=== PATIENT | male | born 1945 | race Caucasian/White ===

== ENCOUNTER 2019-05-11 15:45 | Emergency (ER) | payer MEDICARE | END 2019-05-11 16:52 | disposition home or self-care (01) | LOC: ERS 15:45 | DX: G51.0 Bell's palsy (principal); E11.65 Type 2 diabetes mellitus with hyperglycemia; I10 Essential (primary) hypertension; F17.210 Nicotine dependence, cigarettes, uncomplicated | CPT/HCPCS: 99284 ==

== ENCOUNTER 2022-02-15 12:34 | Outpatient (CLI) | payer MEDICARE | END 2022-02-15 12:35 | disposition home or self-care (01) | LOC: SCSMRI 12:34 | PROVIDERS: ATTEND Orthopaedic Surgery Hand Surgery | DX: S63.591A Other specified sprain of right wrist, initial encounter (principal); M47.22 Other spondylosis with radiculopathy, cervical region; M87.9 Osteonecrosis, unspecified; M18.11 Unilateral primary osteoarthritis of first carpometacarpal joint, right hand; S62.031K Displaced fracture of proximal third of navicular [scaphoid] bone of right wrist, subsequent encounter for fracture with nonunion; M19.031 Primary osteoarthritis, right wrist | CPT/HCPCS: 72141 ==

== ENCOUNTER 2022-06-07 05:59 | Day surgery (SDC) | payer MEDICARE ==
[2022-06-06 14:26] VITALS: BMI 29.6
[2022-06-07] MEDS ORDERED: Bacitracin Zinc Ointment 30 gm TUBE ONE (06:21)
[2022-06-07] MEDS ORDERED: Thrombin 5000 UNITS/5 ML VIAL ONE (06:21)
[2022-06-07] MEDS ORDERED: EPINEPHrine 1 MG/ML AMP ONE (06:21)
[2022-06-07] MEDS ORDERED: Betamet Acet/Betamet Na Ph 30 MG/5 ML VIAL ONE (06:21)
[2022-06-07] MEDS ORDERED: Bupivacaine PF 0.5% 30 ML VIAL ONE (06:21)
[2022-06-07] MEDS ORDERED: Neomycin-Polymyxin 1 ML AMP ONE (06:21)
[2022-06-07] MEDS ORDERED: CEFAZOLIN 2 GM VIAL ONE (06:54)
[2022-06-07] MEDS ORDERED: Sodium Chloride 0.9% 100 ML ONE (06:54)
[2022-06-07] MEDS ORDERED: fentaNYL PF 100 MCG/2 ML SYRINGE ONE (07:18)
[2022-06-07] MEDS ORDERED: Dexmedetomidine 200 MCG/2 ML VIAL ONE (07:18)
[2022-06-07] MEDS ORDERED: PHENYLEPHRINE-NS 100 MCG/ML 10 ML SYRINGE ONE (07:22)
[2022-06-07] MEDS ORDERED: Ondansetron PF 4 MG/2 ML Vial ONE (07:22)
[2022-06-07] MEDS ORDERED: ePHEDrine 50 MG/ML VIAL ONE (07:22)
[2022-06-07] MEDS ORDERED: Dexamethasone 20 MG/5 ML VIAL ONE (07:22)
[2022-06-07] MEDS ORDERED: PROPOFOL 200 MG/20 ML VIAL ONE (07:22)
[2022-06-07] MEDS ORDERED: FENTANYL 50 MCG/ML 1 ML VIAL ONE ×3 (12:22→13:21)
== END 2022-06-07 15:15 | disposition home or self-care (01) ==
LOC: SDC 05:59
PROVIDERS: ATTEND Orthopaedic Surgery Hand Surgery
PROC: 0RBN4ZZ Excision of Right Wrist Joint, Percutaneous Endoscopic Approach (ICD-10-PCS; principal; 2022-06-07)
PROC: 0PBK0ZZ Excision of Right Ulna, Open Approach (ICD-10-PCS; 2022-06-07)
PROC: 01N50ZZ Release Median Nerve, Open Approach (ICD-10-PCS; 2022-06-07)
PROC: 01N40ZZ Release Ulnar Nerve, Open Approach (ICD-10-PCS; 2022-06-07)
DX: M25.831 Other specified joint disorders, right wrist (principal); S63.591A Other specified sprain of right wrist, initial encounter; M65.88 Other synovitis and tenosynovitis, other site; G56.21 Lesion of ulnar nerve, right upper limb; G56.01 Carpal tunnel syndrome, right upper limb; E11.9 Type 2 diabetes mellitus without complications; Z79.01 Long term (current) use of anticoagulants; Z79.4 Long term (current) use of insulin; Z79.84 Long term (current) use of oral hypoglycemic drugs; Z79.899 Other long term (current) drug therapy; Z96.612 Presence of left artificial shoulder joint
CPT/HCPCS: 25390; 29846; 64718; 64721; 73110; 82962; C1713 ×5; J3010; 36416; J0171; J0702; J1100; J2405; J2704; J3490; S0020

== ENCOUNTER 2022-09-23 12:46 | Outpatient (CLI) | payer MEDICARE | END 2022-09-23 12:47 | disposition home or self-care (01) | LOC: SCSMRI 12:46 | PROVIDERS: ATTEND Orthopaedic Surgery Hand Surgery | DX: G56.03 Carpal tunnel syndrome, bilateral upper limbs (principal); M18.11 Unilateral primary osteoarthritis of first carpometacarpal joint, right hand; M19.031 Primary osteoarthritis, right wrist; M24.131 Other articular cartilage disorders, right wrist ==

== ENCOUNTER 2022-12-06 09:27 | Day surgery (SDC) | payer MEDICARE ==
[2022-12-05 11:05] VITALS: BMI 28.2
[2022-12-06] MEDS ORDERED: Bupivacaine PF 0.5% 30 ML VIAL ONE ×2 (09:59→10:13)
[2022-12-06] MEDS ORDERED: Betamet Acet/Betamet Na Ph 30 MG/5 ML VIAL ONE (09:59)
[2022-12-06] MEDS ORDERED: Bacitracin Zinc Ointment 30 gm TUBE ONE (09:59)
[2022-12-06] MEDS ORDERED: Morphine 10 MG/ML VIAL ONE (10:14)
[2022-12-06] MEDS ORDERED: Dexmedetomidine 200 MCG/2 ML VIAL ONE (10:14)
[2022-12-06] MEDS ORDERED: Sodium Chloride 0.9% 100 ML ONE (10:24)
[2022-12-06] MEDS ORDERED: CEFAZOLIN 2 GM VIAL ONE (10:24)
[2022-12-06] MEDS ORDERED: Bupivacaine HCl 0.5%/Epinephrine 1:200,000/PF 30 ml Vial ONE (10:25)
[2022-12-06] MEDS ORDERED: Ketamine In 0.9 % NaCl 50 MG/5 ML SYRINGE ONE (10:29)
[2022-12-06] MEDS ORDERED: Lidocaine 1% PF 5 ML VIAL ONE (10:31)
[2022-12-06] MEDS ORDERED: Ondansetron PF 4 MG/2 ML Vial ONE (10:31)
[2022-12-06] MEDS ORDERED: NEOSTIGMINE 3 MG/3 ML SYR 3 MG/3 ML SYRINGE ONE (10:31)
[2022-12-06] MEDS ORDERED: PROPOFOL 200 MG/20 ML VIAL ONE (10:31)
[2022-12-06] MEDS ORDERED: PHENYLEPHRINE-NS 100 MCG/ML 10 ML SYRINGE ONE (10:31)
[2022-12-06] MEDS ORDERED: Rocuronium Bromide 10 MG/ML (10ML VIAL) ONE (10:31)
[2022-12-06] MEDS ORDERED: GLYCOPYRROLATE/PF 0.2 MG/ML VIAL ONE (10:31)
[2022-12-06 10:32] LABS: #Basophils 0.1 thou/uL (0.0-0.2); #Eosinphils 0.1 thou/uL (0.0-0.7); #Monocytes 0.9 thou/uL (0.11-0.59); #Neutrophils 5.8 thou/uL (1.40-6.50); %Eosinophils 1.3 % (0.0-10.0); %Lymphocytes 24.8 % (21.0-51.0); %Monocytes 9.8 % (0.0-10.0); %Neutrophils 62.7 % (42.0-75.0); Hemoglobin 17.2 g/dL (14.0-18.0); Mean Corpuscular HGB CONC 32.6 g/dL (32.0-36.0); Mean Corpuscular Hemoglobin 30.1 pg (27.0-31.0); Mean Corpuscular Volume 92.5 fl (78.0-98.0); Mean Platelet Volume 10.1 fL (7.4-10.4); Platelet Count 273 10x3/uL (130-400); RBC Distribution Width 12.6 % (11.5-14.5); Red Blood Cell (RBC) Count 5.71 mill/uL (4.70-6.10); White Blood Cell (WBC) Count 9.3 10x3/uL (4.8-10.8)
[2022-12-06] MEDS ORDERED: Ketorolac Tromethamine 30 MG/ML VIAL ONE (13:31)
== END 2022-12-06 14:44 | disposition home or self-care (01) ==
LOC: SDC 09:27
PROVIDERS: ATTEND Orthopaedic Surgery Hand Surgery
PROC: 01N50ZZ Release Median Nerve, Open Approach (ICD-10-PCS; principal; 2022-12-06)
PROC: 3E0T3GC Introduction of Other Therapeutic Substance into Peripheral Nerves and Plexi, Percutaneous Approach (ICD-10-PCS; 2022-12-06)
PROC: 0LB50ZZ Excision of Right Lower Arm and Wrist Tendon, Open Approach (ICD-10-PCS; 2022-12-06)
DX: G56.12 Other lesions of median nerve, left upper limb (principal); G56.01 Carpal tunnel syndrome, right upper limb; M65.841 Other synovitis and tenosynovitis, right hand; M19.90 Unspecified osteoarthritis, unspecified site; E11.9 Type 2 diabetes mellitus without complications; Z79.4 Long term (current) use of insulin; Z79.85 Long-term (current) use of injectable non-insulin antidiabetic drugs; Z79.899 Other long term (current) drug therapy; Z98.890 Other specified postprocedural states
CPT/HCPCS: 26145 ×3; 64708; 64721; 64999; 82962; 85025; 93005; C9352; J3490; 36416; 88304; 93010; J0702; J1885; J2270; J2405; J2704; S0020

== ENCOUNTER 2023-02-03 11:45 | Outpatient (CLI) | payer MEDICARE | END 2023-02-03 11:46 | disposition home or self-care (01) | LOC: SCSMRI 11:45 | PROVIDERS: ATTEND Orthopaedic Surgery Hand Surgery | DX: M48.02 Spinal stenosis, cervical region (principal); M47.22 Other spondylosis with radiculopathy, cervical region; M47.813 Spondylosis without myelopathy or radiculopathy, cervicothoracic region | CPT/HCPCS: 72141 ==